=== PATIENT | male | born 2000 | race Two or more races ===

== ENCOUNTER 2024-03-31 02:45 | Emergency (ER) | payer OTHER ==
[~2024-03-31] VITALS: Ht 180.3 cm; Wt 81.6 kg
[2024-03-31] MEDS ORDERED: ACETAMINOPHEN 500 MG GEL..CAP PO STA (04:03)
== END 2024-03-31 05:04 | disposition home or self-care (01) ==
LOC: ER 02:46
DX: Z00.00 Encounter for general adult medical examination without abnormal findings (principal); V49.9XXA Car occupant (driver) (passenger) injured in unspecified traffic accident, initial encounter; Y93.89 Activity, other specified; Y92.89 Other specified places as the place of occurrence of the external cause; Y99.8 Other external cause status